=== PATIENT | female | born 1965 | race Caucasian/White ===

== ENCOUNTER 2020-06-03 07:28 | Outpatient (CLI) | payer BC, SELFPAY ==
--- NOTE | ~2020-06-03 | CT_ITS ---
EXAMINATION: CT abdomen pelvis w con EXAM DATE: 06/03/2020 08:21 INDICATION: status. TECHNIQUE: Spiral CT of the abdomen and pelvis was performed following intravenous injection of 100 m L Omnipaque 350. Axial, coronal and sagittal images were reviewed. The dose-length product (DLP) fo r this examination was 564.32 mGy-cm. The exposure was tailored according to patient size (auto mA e xposure control), and iterative reconstruction (ASIR) was used as additional dose reduction technique . Comparison is made to prior examination from 07/23/2014. FINDINGS: The previously seen lobular omental fluid density lesion has decreased in size, today measu ring 2.3 x 1.2 cm versus 3.1 x 1.8 cm in 2015, consistent with benign finding. There is a blush of co ntrast in the right liver lobe measuring 8 mm most likely a flash filling hemangioma. The liver, spl een, adrenal glands and pancreas are otherwise unremarkable. Gallbladder is unremarkable. No biliar y obstruction. Portal and splenic veins are patent. Kidneys enhance symmetrically. There is no hyd ronephrosis. Uterus is retroverted with couple of circumscribed regions probably fibroids, largest measuring 2.5 cm. The bladder is unremarkable. There is no retroperitoneal or pelvic lymphadenopath y. There are no findings to suggest appendicitis. The stomach and small bowel are unremarkable. There is expected amount of colonic stool. No free intraperitoneal gas. The heart is normal in size. T here are no pericardial or pleural effusions. The lung bases are unremarkable. There are no osteobl astic or osteolytic lesions identified. IMPRESSION: 1. Omental cystic lesion, decreased in size. Benign finding. 2. Probable small liver hemangioma. 3. Fibroid uterus. Reviewed, dictated and finalized at location B. [employer]
== END 2020-06-03 07:29 | disposition home or self-care (01) ==
PROVIDERS: PCP Physician Assistant; Visit Provider Physician Assistant
DX: K66.8 Other specified disorders of peritoneum (principal); D25.9 Leiomyoma of uterus, unspecified
CPT/HCPCS: 74177; Q9967

== ENCOUNTER 2020-08-19 09:19 | Outpatient (CLI) | payer BC, SELFPAY ==
--- NOTE | ~2020-08-19 | US_ITS ---
EXAMINATION: US pelvic complete w TV DATE: 08/19/2020 09:59 INDICATION: Uterine fibroids. TECHNIQUE: Multiple transabdominal and transvaginal sonographic images of the pelvis were obtained. COMPARISON: CT abdomen and pelvis 06/03/2020 FINDINGS: TRANSABDOMINAL ULTRASOUND: The uterus measures 7.4 x 4.0 x 5.7 cm. There is no free fluid in the pelvis. TRANSVAGINAL ULTRASOUND: The endometrial complex measures 2 mm in thickness. There is a 2.1 cm hypoechoic intramural fibroid i n the posterior fundus. There is a 2.2 cm hypoechoic intramural fibroid in the fundus on the right. T here is a 1.4 cm hypoechoic intramural fibroid in the uterus on the left. The right ovary measures 1. 0 x 1.2 x 2.5 cm. The left ovary measures 1.1 x 2.0 x 0.7 m. IMPRESSION: 1. Uterine fibroids. Reviewed, dictated and finalized at location B. IMPRESSION: 1. Uterine fibroids.
== END 2020-08-19 09:20 | disposition home or self-care (01) ==
PROVIDERS: PCP Physician Assistant; Visit Provider Obstetrics & Gynecology
DX: D25.9 Leiomyoma of uterus, unspecified (principal)
CPT/HCPCS: 76830; 76856

== ENCOUNTER 2022-03-05 14:57 | Outpatient (CLI) | payer BC, SELFPAY ==
--- NOTE | ~2022-03-05 | CT_ITS ---
EXAMINATION: CT abdomen pelvis w con DATE: 03/05/2022 15:21 INDICATION: Lower abdominal cramping for one month. History of omental cyst. TECHNIQUE: Computed tomography (CT) of the abdomen and pelvis was performed with 100 CC Omnipaque 350 intravenous contrast. Automated exposure control and iterative reconstruction technique were employe d. Exam dose: 564.96 mGy-cm total exam DLP. COMPARISON: 08/19/2020 pelvic ultrasound examination 06/03/2020 CT abdomen FINDINGS: The lung bases are clear. Borderline heart size. No pericardial or pleural effusion. Small sliding hiatal hernia. Probable stable small right hepatic hemangioma. The liver, gallbladder, bile ducts, pancreas and panc reatic duct and spleen are otherwise unremarkable. Normal morphology of the adrenal glands. No renal mass lesion or urinary tract calculus or hydroureteronephrosis is evident. The urinary bladd er is evacuated, unremarkable. Normal caliber of the abdominal aorta. No intraperitoneal or retroperitoneal or pelvic mass lesion or adenopathy or ascites. Retroverted fibroid uterus with some calcifications. Normal appendix. No bowel obstruction or intraperitoneal free air. Irregular up to approximately 10 x 20 mm nonspecific fluid collection is noted in the omentum slightl y above the level of the umbilicus. There is relatively stable since 06/03/2020. Included skeletal structures are unremarkable. IMPRESSION: Stable likely benign omental cyst Stable probable small right hepatic hemangioma Small sliding hiatal hernia Retroverted fibroid uterus Normal appendix Reviewed, dictated and finalized at [facility]. Reviewed, dictated and finalized at location B. HER [employer]
== END 2022-03-05 14:58 | disposition home or self-care (01) ==
PROVIDERS: PCP Physician Assistant; Visit Provider Physician Assistant
DX: K66.8 Other specified disorders of peritoneum (principal); K44.9 Diaphragmatic hernia without obstruction or gangrene; D25.9 Leiomyoma of uterus, unspecified
CPT/HCPCS: 74177; Q9967

== ENCOUNTER 2023-04-02 00:56 | Day surgery (SDC) | payer BC, SELFPAY ==
[2023-03-19 14:34] VITALS: BMI 28.6
--- NOTE | 2023-03-29 09:29 | SUR.PREOP ---
Patient called regarding upcoming procedure. message left on patient's voicemail regarding appointment times.
[2023-04-02 12:37] VITALS: BP 115/77; PULSE 75; RESP 18; TEMP 36.4; O2SAT 75; BMI 27.8
--- NOTE | 2023-04-02 12:42 | WPDANESEPPF ---
Anes - Initial Pre Proc Eval Procedure: Operation Date: 04/02/23 14:00 Proposed Procedures p Colonoscopy - Kaden Pang MD Date/Time: 04/02/23 12:42 Surgeon: Kaden Pang MD Pre Op Diagnosis: fam hx colon polyps Patient Data Age: 57 Gender: F Height: 1.63 m Weight: 73.5 kg Last Vital Signs Temp 97.6 F 04/02/23 12:37 Pulse 75 04/02/23 12:37 Resp 18 04/02/23 12:37 BP 115/77 04/02/23 12:37 Pulse Ox 75 L 04/02/23 12:37 O2 Del Method Room Air 04/02/23 12:37 Allergies Allergy/AdvReac Type Severity Reaction Status Date / Time No Known Allergies Allergy Verified 04/13/22 09:21 Home Medications Medication Instructions Recorded Confirmed Type No Home Medications 03/04/23 History Patient hx anesthesia problems: none Family hx anesthesia problems: none Results Review: All pre-operative results and documents have been reviewed as part of the pre-operative evaluation. [facility] Past Medical History Medical History HSV-1 (herpes simplex virus 1) infection Family History Family History Father Hypertension Sibling Ovarian cancer Social History Social History (Updated 04/13/22 @ 09:22 by Melissa Mace MA) Smoking status: Never smoker Alcohol intake: never Substance use: never Substance use type: does not use Living arrangements: with family Occupation/Education: occupation Additional occupation/education comments: dental hygienist Gender identity (if verbalized by the patient): Female Sexual Orientation (if Verbalized by the Patient): Straight or Heterosexual Spiritual care concerns: No Anes - Eval Final PreProcedure Day of Procedure 04/02/23 12:42 Patient weight: overweight Heart: regular rate and rhythm Lungs: clear to auscultation Airway: Mallampati scale class II Neurological: alert and oriented Last oral intake: >/= 8 hours Emergent: no Anesthetic plan: proceed Anesthesia type and monitoring: general GIVS and standard monitoring Results Review: All pre-operative results and documents have been reviewed as part of the pre-operative evaluation. Informed Consent: The patient's anesthetic plan and its attendant risks and benefits were discussed with the patient/family/POA. Questions were solicited and answers provided to the satisfaction of the patient/family/POA.
[2023-04-02] MEDS: LACTATED RINGERS 1,000 ML 150 ML IV CONT (12:48)
--- NOTE | 2023-04-02 13:01 | PM.HPGS ---
History of Present Illness History of Present Illness Consent: Risks, benefits, and alternatives have been discussed and questions answered. Patient agrees to proceed with procedure. Chief complaint: fam hx colon polyps Narrative: Lorrie Concepcion is a 57 year old female here for screening colonoscopy, last one 6 years ago Review of Systems Constitutional: Constitutional: Denies headache(s) and Denies weakness Eyes: Eyes: Denies blurry vision ENT: Reports Normal hearing present, Denies headache(s) and Denies neck pain Cardiovascular: Cardiovascular: Denies chest pain and Denies dyspnea Respiratory: Respiratory: Denies dyspnea Gastrointestinal: Gastrointestinal: Reports no additional gastrointestinal complaints Genitourinary: Genitourinary: Denies dysuria Musculoskeletal: Musculoskeletal: Denies neck pain Integumentary/Breasts: Skin/Breast: Denies dry skin Neurologic: Reports Normal hearing present, Denies headache(s) and Denies weakness Psychiatric: Psychiatric: Denies anxiety Endocrine: Endocrine: Denies change in body appearance Hematologic/Lymphatic: Hematologic/Lymphatic: Denies easy bleeding Allergic/Immunologic: Allergic/Immunologic: Denies urticaria PMFSH Past Medical History Medical History (Updated 04/02/23 @ 13:02 by Kaden Pang MD) Colon cancer screening HSV-1 (herpes simplex virus 1) infection Family History Family History Father Hypertension Sibling Ovarian cancer Social History Social History (Updated 04/13/22 @ 09:22 by Melissa Mace MA) Smoking status: Never smoker Alcohol intake: never Substance use: never Substance use type: does not use Living arrangements: with family Occupation/Education: occupation Additional occupation/education comments: dental hygienist Gender identity (if verbalized by the patient): Female Sexual Orientation (if Verbalized by the Patient): Straight or Heterosexual Spiritual care concerns: No Meds Home Medications and Allergies Home Medications Medication Instructions Recorded Confirmed Type No Home Medications 03/04/23 History Allergies Allergy/AdvReac Type Severity Reaction Status Date / Time No Known Allergies Allergy Verified 04/13/22 09:21 Vital Signs Vital Signs - 24 hr 04/02/23 12:37 Temperature 97.6 F Pulse Rate 75 Respiratory Rate 18 Blood Pressure 115/77 Pulse Oximetry 75 L Oxygen Delivery Room Air Exam Const: General: comfortable and no acute distress HENMT: Face/Nose/Sinus: Normal nares present Eyes: General: appearance normal, both eyes and all related structures Neck: Neck: no JVD Resp: Auscultation: clear to auscultation bilaterally Cardio: Rate: regular rate Rhythm: regular rhythm GI: Inspection: non-distended GI Palp: Yes Soft to palpation Skin: General skin exam: normal color Neuro: General: gait normal Speech: normal speech Extrem: General: normal to inspection Psych: Mental Status: mental status grossly normal Assessment and Plan Assessment and plan (1) Colon cancer screening: Code(s): Z12.11 - Encounter for screening for malignant neoplasm of colon Status: Acute Assessment and Plan: colonoscopy
[2023-04-02 13:27] VITALS: BP 97/64; PULSE 57; RESP 20; O2SAT 96
[2023-04-02 13:37] VITALS: BP 102/72; PULSE 66; RESP 20; O2SAT 98
[2023-04-02 13:47] VITALS: BP 115/68; PULSE 65; RESP 18; O2SAT 100
== END 2023-04-02 13:54 | disposition home or self-care (01) ==
PROVIDERS: PCP Physician Assistant; Referring Provider Obstetrics & Gynecology; Visit Provider Internal Medicine Gastroenterology
PROC: 0DJD8ZZ Inspection of Lower Intestinal Tract, Via Natural or Artificial Opening Endoscopic (ICD-10-PCS; CPT 45378; principal; 2023-04-02 14:00)
DX: Z12.11 Encounter for screening for malignant neoplasm of colon (principal); D12.5 Benign neoplasm of sigmoid colon; K57.30 Diverticulosis of large intestine without perforation or abscess without bleeding; K64.8 Other hemorrhoids; Z83.719 Family history of colon polyps, unspecified
CPT/HCPCS: 45385; 88305; J2001; J2371; J2704; J7120